=== PATIENT | male | born 1995 | race Caucasian/White ===

== ENCOUNTER 2018-04-25 23:50 | Emergency (ER) | payer OTHER ==
[2018-04-26] MEDS: IBUPROFEN 600 MG TAB PO (02:11)
== END 2018-04-26 04:00 | disposition home or self-care (01) ==
LOC: FTE 23:50
DX: S00.93XA Contusion of unspecified part of head, initial encounter (principal); S00.01XA Abrasion of scalp, initial encounter; S19.9XXA Unspecified injury of neck, initial encounter; W10.8XXA Fall (on) (from) other stairs and steps, initial encounter; Y92.9 Unspecified place or not applicable
CPT/HCPCS: 72040; 99283-25